=== PATIENT | female | born 1985 | race Caucasian/White ===

== ENCOUNTER 2017-04-17 15:16 | Emergency (ER) | payer OTHER ==
--- NOTE | ~2017-04-17 | CR260 ---
[facility]. [facility] A Service of [facility] / [facility] RADIOLOGY TEXT RESULTS PATIENT: NICK JENSEN LOCATION: SED : [birth year] UNIT #: [id number] AGE: [address]: BABITA MALIK SEX: F ORDER DR: [id number] [address] [address] [id number] E MR#: [id number] Acc #: [id number] NAME: NICK JENSEN : 1985 SEX: F STUDY DATE/TIME: 04/17/2017 15:33 UNIT: SED ROOM: STUDY DESCRIPTION: CR Toe 2 Views [address] Lt Attending Physician: Babita Malik Aprn Ordering Physician: Babita Malik Aprn MEDICAL IMAGING REPORT This report is preliminary unless electronic signature is present. EXAM Left fifth toe HISTORY Left fifth toe pain since kicking a board last night. FINDINGS Three views of the left fifth toe were obtained. There is an oblique fracture through the shaft of the fifth proximal phalanx. The articular surfaces are not involved. IMPRESSION Slightly displaced, oblique fracture through the shaft of the fifth proximal phalanx. Dictated by... Mir Maxwell M.D. THIS IS AN ELECTRONICALLY VERIFIED REPORT Mir Maxwell M.D. at 04/18/2017 1:00 PM FEL/pcl TD: 04/17/2017 16:52 JOB #: [id number] MEDICAL IMAGING REPORT Page 1 of 1
[~2017-04-17 15:16] MED LIST: COLACE50 MG PO; NORCO 7.5-3251 EACH PO; PERCOCET 5-3251 TAB PO; SENNA8.6 M2
[2017-04-17] MEDS ORDERED: NO MEDICATIONS (15:27)
== END 2017-04-17 16:36 | disposition home or self-care (01) ==
LOC: SED 15:16
DX: S92.512A Displaced fracture of proximal phalanx of left lesser toe(s), initial encounter for closed fracture (principal); F17.210 Nicotine dependence, cigarettes, uncomplicated; Z88.1 Allergy status to other antibiotic agents; Z91.011 Allergy to milk products; Z91.012 Allergy to eggs; W22.8XXA Striking against or struck by other objects, initial encounter; Y92.009 Unspecified place in unspecified non-institutional (private) residence as the place of occurrence of the external cause
CPT/HCPCS: 29280; 29550; 73660; 99283